=== PATIENT | female | born 1995 | race Caucasian/White ===

== ENCOUNTER → 2025-03-15 | Outpatient (CLI) | payer OTHER | LOC: M RAD 09:39 | PROVIDERS: ATTEND Student in an Organized Health Care Education/Training Program | DX: M25.562 Pain in left knee (principal) ==

== ENCOUNTER → 2025-04-25 | Outpatient (CLI) | payer OTHER | LOC: EDUNIT# 03-26 11:00 → M PLAIMG 12:50 | PROVIDERS: ATTEND Student in an Organized Health Care Education/Training Program | DX: R51.9 Headache, unspecified (principal) ==